=== PATIENT | male | born 1975 | race Caucasian/White ===

== ENCOUNTER 2023-09-18 14:19 | Emergency (ER) | payer MEDICAID ==
[~2023-09-18] VITALS: Ht 182.9 cm; Wt 73.0 kg
[2023-09-18 14:20] VITALS: BP_SYST 143; PULSE 86; RESP 18; TEMP 97.5; O2SAT 100
[2023-09-18] MEDS ORDERED: KETOROLAC TROMETHAMINE 30 MG VIAL IM ONE (15:00)
[2023-09-18] MEDS ORDERED: DICL75TA5 PO (15:31)
[2023-09-18] MEDS ORDERED: DICL20GE TP (15:31)
== END 2023-09-18 15:50 | disposition home or self-care (01) ==
LOC: SED 14:19
DX: M25.511 Pain in right shoulder (principal); Z79.899 Other long term (current) drug therapy
CPT/HCPCS: 73030; 99283